=== PATIENT | male | born 1970 | race Two or more races ===

== ENCOUNTER 2019-04-15 11:51 | Outpatient (CLI) | payer BC | END 2019-04-15 23:59 | disposition home or self-care (01) | LOC: MRI 11:51 | PROVIDERS: ATTEND Family Medicine | DX: M94.262 Chondromalacia, left knee (principal) | CPT/HCPCS: 73721-TC ==

== ENCOUNTER 2019-11-15 15:07 | Outpatient (CLI) | payer BC | END 2019-11-15 23:59 | disposition home or self-care (01) | LOC: RAD 15:07 | PROVIDERS: ATTEND Family Medicine | DX: M25.521 Pain in right elbow (principal) | CPT/HCPCS: 73070-TC ==

== ENCOUNTER 2020-07-04 12:27 | Emergency (ER) | payer BC ==
[~2020-07-04] VITALS: Ht 165.1 cm; Wt 68.0 kg
[2020-07-04 12:40] VITALS: BP 141/61
== END 2020-07-04 14:50 | disposition home or self-care (01) ==
LOC: ER 12:34
DX: S62.662A Nondisplaced fracture of distal phalanx of right middle finger, initial encounter for closed fracture (principal); S60.131A Contusion of right middle finger with damage to nail, initial encounter; W18.39XA Other fall on same level, initial encounter; Y93.89 Activity, other specified; Y92.89 Other specified places as the place of occurrence of the external cause; Y99.8 Other external cause status
CPT/HCPCS: 73140-TC